=== PATIENT | male | born 1975 | race Caucasian/White ===

== ENCOUNTER 2024-08-14 00:52 | Day surgery (SDC) | payer BC, SELFPAY ==
[2024-08-06 14:04] VITALS: BMI 37.1
[2024-08-14 06:47] VITALS: BP 151/89; PULSE 58; RESP 18; TEMP 36; O2SAT 99; BMI 40.2
--- NOTE | 2024-08-14 06:59 | P.PNAN_ITS ---
Anes - Initial Pre Proc Eval Procedure: Operation Date: 08/14/24 08:00 Proposed Procedures p Colonoscopy - Eric Fontenot MD Date/Time: 08/14/24 06:59 Surgeon: Eric Fontenot MD Pre Op Diagnosis: Fecal Abnormalities Patient Data Age: 48 Gender: M Height: 1.68 m Weight: 113.1 kg Last Vital Signs Temp 36.0 C L 08/14/24 06:47 Pulse 58 L 08/14/24 06:47 Resp 18 08/14/24 06:47 BP 151/89 H 08/14/24 06:47 Pulse Ox 99 08/14/24 06:47 O2 Del Method Room Air 08/14/24 06:47 Allergies Allergy/AdvReac Type Severity Reaction Status Date / Time adhesive Allergy Intermediate Rash Verified 08/14/24 06:45 Home Medications Medication Instructions Recorded Confirmed Type nitroglycerin 0.4 mg sublingual 0.4 mg sublingual Q5M PRN Chest 12/21/22 08/14/24 History tablet Pain aspirin 81 mg tablet,delayed 81 mg PO DAILY #90 tabs 04/06/23 08/14/24 Rx release atorvastatin 40 mg tablet 40 mg PO QHS #90 tabs 06/21/23 08/14/24 Rx losartan 50 mg tablet 50 mg PO DAILY #90 tabs 06/21/23 08/14/24 Rx cyanocobalamin (vitamin B-12) 1,000 mcg sublingual DAILY 11/09/23 08/14/24 History 1,000 mcg sublingual tablet Testosterone TRIT 1 tablet tablet 5 mg sublingual BID #60 tabs 07/25/24 08/14/24 Rx esomeprazole magnesium 20 mg 20 mg PO DAILY 08/06/24 08/14/24 History capsule,delayed release (Nexium) loratadine 10 mg tablet (Claritin) 10 mg PO DAILY 08/06/24 08/14/24 History empagliflozin 10 mg tablet 10 mg PO DAILY #90 tabs 08/13/24 08/14/24 Rx (Jardiance) metoprolol tartrate 25 mg tablet 25 mg PO BID #180 tabs 08/13/24 08/14/24 Rx Patient hx anesthesia problems: none Family hx anesthesia problems: none Results Review: All pre-operative results and documents have been reviewed as part of the pre- operative evaluation. [facility] Past Medical History Medical History (Updated 08/14/24 @ 07:03 by Taurus Goins MD) Diabetes Dyslipidemia Fracture of left ankle (~2013) Hypertension Low testosterone Morbid obesity Past heart attack 12/10/22 Surgical History Surgical History History of heart artery stent 12/10/22 -2 stents History of surgery on lower extremity plate L lower leg 2013 Family History Family History Father Acute myocardial infarction Grandparent Acute myocardial infarction Social History Social History Smoking status: Never smoker Alcohol intake: current Drinks per week: 1 Alcohol use details: rare Substance use: never Substance use type: does not use Lack of Transportation: No Lack of Food: Never True Current Housing: I Have Housing Concerned About Future Housing: No Difficulty Paying Gas/Electric Bills: No Difficulty Paying for Meds: No Currently Unemployed: No Education: Bachelor's Degree Difficulty w/ Childcare or Family Care: No Living arrangements: alone Occupation/Education: occupation Gender identity (if verbalized by the patient): Male Sexual Orientation (if Verbalized by the Patient): Straight or Heterosexual Spiritual care concerns: No Anes - Eval Final PreProcedure Day of Procedure 08/14/24 06:59 Patient weight: morbidly obese Heart: regular rate and rhythm Lungs: clear to auscultation Airway: Mallampati scale class II Neurological: alert and oriented Last oral intake: >/= 8 hours ASA classification: III Emergent: no Anesthetic plan: proceed Anesthesia type and monitoring: general GIVS and standard monitoring Results Review: All pre-operative results and documents have been reviewed as part of the pre- operative evaluation. Informed Consent: The patient's anesthetic plan and its attendant risks and benefits were discussed with the patient/family/POA. Questions were solicited and answers provided to the satisfaction of the patient/family/POA.
[2024-08-14 07:01] LABS: Glucose Point of Care 107 mg/dl (65-105)
[2024-08-14] MEDS: LACTATED RINGERS 1,000 ML 150 ML IV CONT (07:04)
--- NOTE | 2024-08-14 08:36 | PM.IMHP ---
H&P: HPI History of Present Illness Date/Time: 08/14/24 08:36 Chief Complaint: Screening colonoscopy Narrative: This is the patient's first colonoscopy. There are no GI symptoms and there is no family history of colorectal cancer. Review of Systems Review of Systems: All systems reviewed & are unremarkable except as noted in HPI and below PMFSH Past Medical History Medical History (Updated 08/14/24 @ 08:37 by Eric Fontenot MD) Diabetes Dyslipidemia Fracture of left ankle (~2013) Hypertension Low testosterone Morbid obesity Past heart attack 12/10/22 Surgical History Surgical History History of heart artery stent 12/10/22 -2 stents History of surgery on lower extremity plate L lower leg 2013 Family History Family History Father Acute myocardial infarction Grandparent Acute myocardial infarction Social History Social History Smoking status: Never smoker Alcohol intake: current Drinks per week: 1 Alcohol use details: rare Substance use: never Substance use type: does not use Lack of Transportation: No Lack of Food: Never True Current Housing: I Have Housing Concerned About Future Housing: No Difficulty Paying Gas/Electric Bills: No Difficulty Paying for Meds: No Currently Unemployed: No Education: Bachelor's Degree Difficulty w/ Childcare or Family Care: No Living arrangements: alone Occupation/Education: occupation Gender identity (if verbalized by the patient): Male Sexual Orientation (if Verbalized by the Patient): Straight or Heterosexual Spiritual care concerns: No Meds Home Medications and Allergies Home Medications Medication Instructions Recorded Confirmed Type nitroglycerin 0.4 mg sublingual 0.4 mg sublingual Q5M PRN Chest 12/21/22 08/14/24 History tablet Pain aspirin 81 mg tablet,delayed 81 mg PO DAILY #90 tabs 04/06/23 08/14/24 Rx release atorvastatin 40 mg tablet 40 mg PO QHS #90 tabs 06/21/23 08/14/24 Rx losartan 50 mg tablet 50 mg PO DAILY #90 tabs 06/21/23 08/14/24 Rx cyanocobalamin (vitamin B-12) 1,000 mcg sublingual DAILY 11/09/23 08/14/24 History 1,000 mcg sublingual tablet Testosterone TRIT 1 tablet tablet 5 mg sublingual BID #60 tabs 07/25/24 08/14/24 Rx esomeprazole magnesium 20 mg 20 mg PO DAILY 08/06/24 08/14/24 History capsule,delayed release (Nexium) loratadine 10 mg tablet (Claritin) 10 mg PO DAILY 08/06/24 08/14/24 History empagliflozin 10 mg tablet 10 mg PO DAILY #90 tabs 08/13/24 08/14/24 Rx (Jardiance) metoprolol tartrate 25 mg tablet 25 mg PO BID #180 tabs 08/13/24 08/14/24 Rx Allergies Allergy/AdvReac Type Severity Reaction Status Date / Time adhesive Allergy Intermediate Rash Verified 08/14/24 06:45 Vital Signs Vital Signs - 24 hr 08/14/24 06:47 Temperature 96.8 F L Pulse Rate 58 L Respiratory Rate 18 Blood Pressure 151/89 H Pulse Oximetry 99 Oxygen Delivery Room Air Exam Const: General: cooperative and healthy appearing Resp: Effort & Inspection: normal respiratory effort and able to speak in complete sentences Auscultation: clear to auscultation bilaterally Cardio: Rate: regular rate Rhythm: regular rhythm GI: Inspection: normal to inspection GI Palp: No No hepatosplenomegaly present Auscultation: normal bowel sounds Rectal Exam: deferred Skin: General skin exam: normal color Psych: Appearance: grossly normal Mental Status: mental status grossly normal Assessment and Plan Assessment and plan (1) Screening for malignant neoplasm of colon: Code(s): Z12.11 - Encounter for screening for malignant neoplasm of colon Status: Acute Assessment and Plan: The patient is deemed a good candidate for the procedure. Consent signed. Will proceed.
[2024-08-14 09:09] VITALS: BP 115/66; PULSE 75; RESP 20; O2SAT 98
[2024-08-14 09:19] VITALS: BP 140/95; PULSE 56; RESP 17; O2SAT 100
[2024-08-14 09:29] VITALS: BP 160/62; PULSE 63; RESP 17; O2SAT 100
== END 2024-08-14 09:40 | disposition home or self-care (01) ==
PROVIDERS: PCP Physician Assistant Medical; Visit Provider Internal Medicine Gastroenterology
PROC: 0DJD8ZZ Inspection of Lower Intestinal Tract, Via Natural or Artificial Opening Endoscopic (ICD-10-PCS; CPT 45378; principal; 2024-08-14 08:00)
DX: Z12.11 Encounter for screening for malignant neoplasm of colon (principal); D12.3 Benign neoplasm of transverse colon; K57.30 Diverticulosis of large intestine without perforation or abscess without bleeding; E78.5 Hyperlipidemia, unspecified; I10 Essential (primary) hypertension; E11.9 Type 2 diabetes mellitus without complications; I25.2 Old myocardial infarction; E66.01 Morbid (severe) obesity due to excess calories; Z68.41 Body mass index [BMI] 40.0-44.9, adult; Z79.82 Long term (current) use of aspirin; Z79.84 Long term (current) use of oral hypoglycemic drugs; Z98.890 Other specified postprocedural states; Z95.5 Presence of coronary angioplasty implant and graft; Z82.49 Family history of ischemic heart disease and other diseases of the circulatory system
CPT/HCPCS: 45385; 45381; 82948; 88305; J2003; J2704; J7120